=== PATIENT | female | born 1950 | race Caucasian/White ===

== ENCOUNTER 2023-04-10 20:55 | Inpatient (IN) | payer MEDICARE ==
[2023-04-10] MEDS ORDERED: Metoprolol Tartrate 5 MG/5 ML VIAL ONE ×4 (21:12→22:49)
[2023-04-10 21:41] LABS: #Eosinphils 0.1 10x3/uL (0.0-0.5); #Monocytes 0.7 10x3/uL (0.0-1.1); #Neutrophils 8.6 10x3/uL (1.5-8.4); %Basophils 0.2 % (0.0-2.0); %Eosinophils 0.8 % (0.0-6.0); %Lymphocytes 14.7 % (18.0-47.0); %Monocytes 6.4 % (0.0-10.0); %Neutrophils 77.5 % (40.0-75.0); Hematocrit 32.8 % (34.9-44.5); Hemoglobin 10.6 g/dL (12.0-15.5); Mean Corpuscular HGB CONC 32.3 g/dL (32.0-36.0); Mean Corpuscular Hemoglobin 31.5 pg (27.0-33.0); Mean Corpuscular Volume 97.6 fl (81.6-98.3); Mean Platelet Volume 9.7 fl (7.4-10.4); PTT 27.6 sec (22.0-33.0); Platelet Count 212 10x3/uL (150-450); RBC Distribution Width 14.7 % (11.5-14.5); Red Blood Cell (RBC) Count 3.36 10x6/uL (3.90-5.03); White Blood Cell (WBC) Count 11.1 10x3/uL (3.5-10.5)
[2023-04-10 21:47] LABS: ALT (SGPT) 8 U/L (8-55); AST (SGOT) 22 U/L (5-34); Alkaline Phosphatase 65 U/L (40-110); Anion Gap 22 mmol/L (10-20); BUN (Urea Nitrogen) 31 mg/dL (9.8-20.1); Bilirubin, Total 0.7 mg/dL (0.2-1.2); Calc. Creatinine Clearance 0 mL/min (70-130); Calcium 9.9 mg/dL (7.8-10.44); Carbon Dioxide 23 mmol/L (23-31); Chloride 99 mmol/L (98-107); Estimated GFR 8; Globulin 3.2 g/dL (2.4-3.5); Magnesium 1.9 mg/dL (1.6-2.6); Potassium 3.6 mmol/L (3.5-5.1); Protein, Total 7.2 g/dL (5.8-8.1); Sodium 140 mmol/L (136-145)
[2023-04-10 21:50] LABS: Troponin I 0.029 ng/mL (< 0.028)
[2023-04-10 21:52] LABS: Glucose 48 mg/dL (83-110)
[2023-04-10] MEDS ORDERED: Dextrose 50% Abboject 50 ML SYRINGE ONE (21:54)
[2023-04-10 22:45] LABS: Bilirubin Neg (Negative); Blood, Urine Negative (Negative); Glucose, Urine (Dipstick) 50 mg/dL (Negative); Ketone, Urine Negative (Negative); Leukocyte Negative (Negative); Nitrite Negative (Negative); Protein, Urine (Dipstick) 100 mg/dl (Neg-Trace); Specific Gravity, Urine 1.015 (1.005-1.030); Urobilinogen Normal mg/dL (Less than 2)
[2023-04-10 22:46] LABS: Clarity Clear (Clear)
[2023-04-10 23:23] LABS: Bacteria/HPF None Seen HPF (None Seen); CAUTI Indications for Culture Dysuria,urgency,freq; RBC/HPF None Seen HPF (0-3); WBC/HPF 0-3 HPF (0-3)
[2023-04-10 23:24] LABS: Urine Culture Reflex No No
[2023-04-10] MEDS ORDERED: dilTIAZem 25 MG/5 ML VIAL ONE (23:35)
[2023-04-10] MEDS ORDERED: dilTIAZem 125 MG/25 ML SDV ONE (23:35)
[2023-04-11] MEDS ORDERED: Acetaminophen 325 MG TAB PO PRN (01:00)
[2023-04-11] MEDS ORDERED: Dextrose 50% Abboject 50 ML SYRINGE SLOW IVP PRN (01:03)
[2023-04-11] MEDS ORDERED: Glucagon 1 MG/ML KIT IM PRN (01:03)
[2023-04-11] MEDS ORDERED: Dextrose 5% in Water 1,000 ML IV PRN (01:03)
[2023-04-11] MEDS ORDERED: Ipratropium/Albuterol 3 ML NEB EZPAP PRN (01:04)
[2023-04-11] MEDS ORDERED: dilTIAZem 125 MG in Sodium Chloride 0.9% 100 ML IVPB SCH (01:30)
[2023-04-11 01:46] VITALS: BMI 28.6
[2023-04-11 04:13] LABS: #Eosinphils 0.2 10x3/uL (0.0-0.5); #Monocytes 0.7 10x3/uL (0.0-1.1); #Neutrophils 5.9 10x3/uL (1.5-8.4); %Basophils 0.4 % (0.0-2.0); %Lymphocytes 16.2 % (18.0-47.0); %Monocytes 8.2 % (0.0-10.0); %Neutrophils 72.8 % (40.0-75.0); Hematocrit 27.1 % (34.9-44.5); Hemoglobin 8.6 g/dL (12.0-15.5); Mean Corpuscular HGB CONC 31.7 g/dL (32.0-36.0); Mean Corpuscular Hemoglobin 31.4 pg (27.0-33.0); Mean Corpuscular Volume 98.9 fl (81.6-98.3); Mean Platelet Volume 10.3 fl (7.4-10.4); Platelet Count 198 10x3/uL (150-450); RBC Distribution Width 14.6 % (11.5-14.5); Red Blood Cell (RBC) Count 2.74 10x6/uL (3.90-5.03); White Blood Cell (WBC) Count 8.2 10x3/uL (3.5-10.5)
[2023-04-11 04:19] LABS: Anion Gap 16 mmol/L (10-20); BUN (Urea Nitrogen) 35 mg/dL (9.8-20.1); Calc. Creatinine Clearance 9 mL/min (70-130); Calcium 8.7 mg/dL (7.8-10.44); Carbon Dioxide 27 mmol/L (23-31); Chloride 100 mmol/L (98-107); Estimated GFR 7; Glucose 134 mg/dL (83-110); Magnesium 1.9 mg/dL (1.6-2.6); Potassium 3.8 mmol/L (3.5-5.1); Sodium 139 mmol/L (136-145)
[2023-04-11] MEDS ORDERED: FLU VACC QS2023(65UP)/MF59C/PF 60 MCG/0.5 ML SYRINGE IM ONE (09:00)
[2023-04-11] MEDS: Apixaban 2.5 MG TAB PO SCH ×2 (09:54→21:27)
[2023-04-11] MEDS: Flecainide 50 MG TAB PO SCH (21:26)
[2023-04-11] MEDS: Ondansetron PF 4 MG/2 ML Vial IVP PRN (21:43)
[2023-04-11] MEDS: diphenhydrAMINE 25 MG CAP PO PRN (21:54)
[2023-04-12 04:43] LABS: #Eosinphils 0.4 10x3/uL (0.0-0.5); #Monocytes 0.7 10x3/uL (0.0-1.1); #Neutrophils 4.4 10x3/uL (1.5-8.4); %Basophils 0.6 % (0.0-2.0); %Eosinophils 5.3 % (0.0-6.0); %Lymphocytes 22.9 % (18.0-47.0); %Monocytes 10.2 % (0.0-10.0); %Neutrophils 60.4 % (40.0-75.0); Anion Gap 19 mmol/L (10-20); BUN (Urea Nitrogen) 48 mg/dL (9.8-20.1); Calc. Creatinine Clearance 8 mL/min (70-130); Calcium 8.8 mg/dL (7.8-10.44); Carbon Dioxide 26 mmol/L (23-31); Chloride 98 mmol/L (98-107); Estimated GFR 5; Glucose 124 mg/dL (83-110); Hematocrit 29.8 % (34.9-44.5); Hemoglobin 9.6 g/dL (12.0-15.5); Magnesium 2.1 mg/dL (1.6-2.6); Mean Corpuscular HGB CONC 32.2 g/dL (32.0-36.0); Mean Corpuscular Hemoglobin 31.8 pg (27.0-33.0); Mean Corpuscular Volume 98.7 fl (81.6-98.3); Mean Platelet Volume 10.3 fl (7.4-10.4); Platelet Count 190 10x3/uL (150-450); Potassium 4.6 mmol/L (3.5-5.1); RBC Distribution Width 14.6 % (11.5-14.5); Red Blood Cell (RBC) Count 3.02 10x6/uL (3.90-5.03); Sodium 138 mmol/L (136-145); White Blood Cell (WBC) Count 7.2 10x3/uL (3.5-10.5)
[2023-04-12 04:47] LABS: Troponin I Less than 0.010 ng/mL (< 0.028)
[2023-04-12] MEDS ORDERED: Heparin 10,000 UNITS/ 10 ML VIAL SLOW IVP PRN (07:48)
[2023-04-12] MEDS: diphenhydrAMINE 25 MG CAP PO PRN ×2 (08:58→18:11)
[2023-04-12] MEDS: Ondansetron PF 4 MG/2 ML Vial IVP PRN (08:58)
[2023-04-12] MEDS ORDERED: Epoetin (ESRD) 10,000 UNITS/ML VIAL IVP PRN (09:00)
[2023-04-12] MEDS: Apixaban 2.5 MG TAB PO SCH ×2 (09:01→20:03)
[2023-04-12] MEDS: Flecainide 50 MG TAB PO SCH ×2 (09:01→20:03)
[2023-04-12] MEDS ORDERED: busPIRone HCl 5 MG TAB PO PRN (16:28)
[2023-04-13 05:00] LABS: #Eosinphils 0.3 10x3/uL (0.0-0.5); #Monocytes 0.7 10x3/uL (0.0-1.1); %Basophils 0.4 % (0.0-2.0); %Eosinophils 4.1 % (0.0-6.0); %Lymphocytes 20.2 % (18.0-47.0); %Monocytes 9.4 % (0.0-10.0); %Neutrophils 65.6 % (40.0-75.0); Hematocrit 30.6 % (34.9-44.5); Hemoglobin 10.1 g/dL (12.0-15.5); Mean Corpuscular Hemoglobin 32.2 pg (27.0-33.0); Mean Corpuscular Volume 97.5 fl (81.6-98.3); Mean Platelet Volume 10.1 fl (7.4-10.4); Platelet Count 188 10x3/uL (150-450); RBC Distribution Width 14.6 % (11.5-14.5); Red Blood Cell (RBC) Count 3.14 10x6/uL (3.90-5.03); White Blood Cell (WBC) Count 7.5 10x3/uL (3.5-10.5)
[2023-04-13 05:12] LABS: Anion Gap 22 mmol/L (10-20); BUN (Urea Nitrogen) 46 mg/dL (9.8-20.1); Calc. Creatinine Clearance 8 mL/min (70-130); Calcium 8.8 mg/dL (7.8-10.44); Carbon Dioxide 23 mmol/L (23-31); Chloride 98 mmol/L (98-107); Estimated GFR 6; Glucose 133 mg/dL (83-110); Magnesium 2.2 mg/dL (1.6-2.6); Potassium 4.6 mmol/L (3.5-5.1); Sodium 138 mmol/L (136-145)
[2023-04-13] MEDS: Flecainide 50 MG TAB PO SCH ×3 (09:02→21:35)
[2023-04-13] MEDS: Apixaban 2.5 MG TAB PO SCH ×3 (09:02→21:36)
[2023-04-13 09:30] LABS: HBSAg Index 0.14 S/CO (0-0.99); Hep B Surf Ag Non-Reactive S/CO (NonReactive)
[2023-04-13] MEDS ORDERED: Polyethylene Glycol 3350 17 GM Packet PO PRN (10:33)
[2023-04-13 17:19] LABS: HBSAB Concentration Less than 8.00 mIU/mL; Hep B Surf AB Non-Reactive (NonReactive)
[2023-04-14] MEDS: Apixaban 2.5 MG TAB PO SCH (08:53)
[2023-04-14] MEDS: Flecainide 50 MG TAB PO SCH (08:53)
[2023-04-14] MEDS ORDERED: hydrALAZINE 25 MG TAB PO SCH (09:00)
[2023-04-14 12:11] VITALS: BP 176/72; TEMP 98
== END 2023-04-14 12:27 | DRG 291 ==
LOC: CSHERS 20:55 → CSHTELE 04-11 00:18
PROVIDERS: ADMIT Internal Medicine; ATTEND Internal Medicine
PROC: 5A1D70Z Performance of Urinary Filtration, Intermittent, Less than 6 Hours Per Day (ICD-10-PCS; principal; 2023-04-10)
PROC: 5A1D70Z Performance of Urinary Filtration, Intermittent, Less than 6 Hours Per Day (ICD-10-PCS; 2023-04-11)
PROC: 5A1D70Z Performance of Urinary Filtration, Intermittent, Less than 6 Hours Per Day (ICD-10-PCS; 2023-04-12)
DX: I13.2 Hypertensive heart and chronic kidney disease with heart failure and with stage 5 chronic kidney disease, or end stage renal disease (principal); I50.33 Acute on chronic diastolic (congestive) heart failure; J96.01 Acute respiratory failure with hypoxia; N18.6 End stage renal disease; E78.5 Hyperlipidemia, unspecified; Z66 Do not resuscitate; J44.9 Chronic obstructive pulmonary disease, unspecified; G47.33 Obstructive sleep apnea (adult) (pediatric); E03.9 Hypothyroidism, unspecified; K21.9 Gastro-esophageal reflux disease without esophagitis; E11.649 Type 2 diabetes mellitus with hypoglycemia without coma; D63.1 Anemia in chronic kidney disease; E11.40 Type 2 diabetes mellitus with diabetic neuropathy, unspecified; E11.22 Type 2 diabetes mellitus with diabetic chronic kidney disease; I48.0 Paroxysmal atrial fibrillation; Z79.4 Long term (current) use of insulin; Z79.890 Hormone replacement therapy; Z90.49 Acquired absence of other specified parts of digestive tract; Z99.2 Dependence on renal dialysis; Z79.899 Other long term (current) drug therapy; Z79.01 Long term (current) use of anticoagulants; Z88.1 Allergy status to other antibiotic agents; Z98.890 Other specified postprocedural states; Z90.710 Acquired absence of both cervix and uterus; Z82.49 Family history of ischemic heart disease and other diseases of the circulatory system; Z87.891 Personal history of nicotine dependence
CPT/HCPCS: 36415; 36416; 51701; 71045; 80048; 80053; 81001; 83735; 83880; 84443; 84484; 85025; 85610; 85730; 86706; 87340; 90471; 90694; 90935; 93005; 93010; 94760; 94762; 96365; 96375; 96376; G0008; G0257; J1644; J2405; J7999